=== PATIENT | male | born 1995 | race Caucasian/White ===

== ENCOUNTER 2023-05-03 14:38 | Emergency (ER) | payer SELFPAY ==
[~2023-05-03] VITALS: Ht 180.3 cm; Wt 89.0 kg
[2023-05-03 15:19] VITALS: O2SAT 99
[2023-05-03] MEDS ORDERED: ACETAMINOPHEN 325MG TABLET PO ONE (16:15)
[2023-05-03] MEDS ORDERED: DIAZEPAM 5 MG TABLET PO ONE (16:15)
[2023-05-03] MEDS ORDERED: KETOROLAC 60MG/2ML VIAL IM ONE (16:15)
[2023-05-03] MEDS ORDERED: CYCL5TAB PO (16:15)
[2023-05-03] MEDS ORDERED: ACET-2708 MT (16:15)
[2023-05-03 17:04] VITALS: BP 132/77; PULSE 82; RESP 19; TEMP 98.6
== END 2023-05-03 17:09 | disposition home or self-care (01) ==
LOC: ER 14:53
DX: M54.2 Cervicalgia (principal)
CPT/HCPCS: 99281; 99283